=== PATIENT | female | born 1990 | race Caucasian/White ===

== ENCOUNTER → 2016-08-29 | Outpatient (CLI) | payer OTHER ==
[~2016-08-29] MED LIST: CEPHALEXIN500 M1 PO; NO HOME MEDICATIONS
[2016-08-29 12:43] LABS: ADD PATHOLOGY DIFF REVIEW NO
[2016-08-29 13:00] LABS: ADJUSTED CALCIUM 8.9 mg/dL (8.4-10.2); ALANINE AMINOTRANSFERASE 27 U/L (9-52); ALBUMIN 4.6 gm/dL (3.5-5.0); ALKALINE PHOSPHATASE 37 U/L (50-136); ANION GAP 12 mmol/L (7-16); BILIRUBIN,TOTAL 1.6 mg/dL (0.0-1.0); BLOOD UREA NITROGEN 8 mg/dL (7-17); CALCIUM 9.4 mg/dL (8.4-10.2); CARBON DIOXIDE 26 mmol/L (22-30); CHLORIDE 103 mmol/L (98-107); CREATININE, serum 0.88 mg/dL (0.52-1.25); GLUCOSE 94 mg/dL (74-106); POTASSIUM 3.7 mmol/L (3.4-5.0); SODIUM 141 mmol/L (137-145); TOTAL PROTEIN 7.6 gm/dL (6.4-8.2)
[2016-08-29 13:01] LABS: C-REACTIVE PROTEIN < 0.5 mg/dL (0.0-0.9)
[2016-08-29 13:03] LABS: HEMATOCRIT 39.1 % (37.0-47.0); HEMOGLOBIN 13.5 g/dl (12.5-16.0); MEAN CELL VOLUME 91 fl (80.0-100.0); MEAN CORPUSCULAR HEMOGLOBIN 31 pg (27.0-31.0); MEAN CORPUSCULAR HGB CONC 35 g/dl (33.0-37.0); MEAN PLATELET VOLUME 13.2 fl (7.4-10.4); PLATELET COUNT 125 K/mm3 (130-400); RED BLOOD COUNT 4.31 M/mm3 (4.10-5.30); REDCELL DISTRIBUTION WIDTH-CV 11.5 % (11.5-14.5)
[2016-08-29 13:32] LABS: BASOPHIL 1 % (0-2); EOSINOPHIL 1 % (0-4); NEUTROPHILS 71 % (42.0-75.2); TOTAL CELLS COUNTED 100
[2016-08-29 13:33] LABS: ANISOCYTOSIS 1+; HYPOCHROMIA 1+
[2016-08-29 13:40] LABS: LACTATE DEHYDROGENASE 359 U/L (313-618); URIC ACID 4.1 mg/dL (2.5-6.2)
[2016-08-29 13:42] LABS: ERYTHROCYTE SEDIMENTATION RATE 1 mm/hr (0-20)
== END ==
LOC: COL.LAB 12:16
DX: R21 Rash and other nonspecific skin eruption (principal); R63.4 Abnormal weight loss; R53.83 Other fatigue

== ENCOUNTER 2020-03-14 16:30 | Inpatient (IN) | payer BC, MEDICAID ==
[2020-03-14] VITALS (23 sets, daily range): BP systolic 108–131; BP diastolic 56–79; PULSE 76–99; TEMP 97.8–98.5
[~2020-03-14] VITALS: Ht 175.3 cm; Wt 75.9 kg
[2020-03-14 17:31] LABS: BASO % 0.2 % (0.0-2.0); EOS % 0.1 % (0-4.0); GRAN # 17.5 (1.4-6.5); GRAN % 87.7 % (42.2-75.2); HEMATOCRIT 38.1 % (37.0-47.0); HEMOGLOBIN 13.5 g/dl (12.5-16.0); LYMPH # 1.1 (1.2-3.4); LYMPH % 5.5 % (20.0-51.0); MEAN CELL VOLUME 92 fl (80.0-100.0); MEAN CORPUSCULAR HEMOGLOBIN 33 pg (27.0-31.0); MEAN CORPUSCULAR HGB CONC 35 g/dl (33.0-37.0); MEAN PLATELET VOLUME 13.3 fl (7.4-10.4); MONO % 5.2 % (1.7-9.3); PLATELET COUNT 112 K/mm3 (130-400); RED BLOOD COUNT 4.13 M/mm3 (4.10-5.30); REDCELL DISTRIBUTION WIDTH-CV 12.5 % (11.5-14.5)
--- NOTE | 2020-03-14 18:10 | NUR ---
1630 - Pt and spouse arrive ambulatory on unit. Pt changes into gown, EFM explained and placed. Pt states she has been having contractions about every 5 minutes and is leaking fluid. Pt states she had her membranes stripped today and the leaking started a couple hours after. Pt reports some spotting but no major vaginal bleeding, and good movement. Vitals taken. AmniSure swab positive. Dr. Payton notified. Admisssion labor orders received.
--- NOTE | 2020-03-14 18:13 | NUR ---
1711 - IV started in right forearm, labs drawn.
--- NOTE | 2020-03-14 18:15 | NUR ---
Pt requesting epidural, Denzel Arango CRNA notified.
[2020-03-14] MEDS ORDERED: ZOLOFT 25MG25 MG PO (18:16)
[2020-03-14] MEDS ORDERED: PRENATAL TABLET PO (18:16)
[2020-03-14] MEDS ORDERED: PREDNISONE10 MG PO (18:16)
--- NOTE | 2020-03-14 18:20 | NUR ---
1820- BEDSIDE REPORT RECEIVED, CARE ASSUMED. PT WAITING FOR EPIDURAL, DENIES FURTHER NEEDS. 1824- PT UP TO BATHROOM BEFORE EPIDURAL STARTED. 1829- BERLIN MEDART OPERATOR AT BEDSIDE FOR EPIDURAL PLACEMENT. PT POSITIONED SITTING ON EDGE OF BED. BERLIN ANSWERS QUESTIONS. PT VERBALIZES UNDERSTANDING OF PROCEDURE. 184- EPIDURAL TEST DOSE. PT TOLERATED WELL. 1845- EPIDURAL PROCEDURE COMPLETE. PT REPOSITIONED IN LEFT TILT AND MONITORS ADJUSTED. PLAN OF CARE DISCUSSED AND QUESTIONS ANSWERED. 1854- PT REPORTS SHE IS MORE COMFORTABLE. 1899- DR PACKER AT BEDSIDE. DISCUSSES PLAN OF CARE. 1904- SVE BY DR PACKER WITH MORE BLOODY SHOW. PT TOLERATED EXAM WELL. 1919- PT DENIES NEEDS. 1934- PT DENIES NEEDS.
--- NOTE | 2020-03-14 20:00 | NUR ---
1999- PT DENIES NEEDS. COVID SWAB OFFERED DUE TO SPONTANEOUS LABOR. PT DECLINES AT THIS TIME.
--- NOTE | 2020-03-14 20:40 | NUR ---
2039- NURSE TO BEDSIDE. PT REPORTS THAT SHE IS COMFORTABLE WITH EPIDURAL. FEELS SOME MILD PRESSURE IN HER ABDOMEN BUT NONE IN HER BOTTOM. 2044- SVE BY THIS NURSE , TO CATHETER PLACED AT THIS TIME. PT DENIES FURTHER NEEDS.
--- NOTE | 2020-03-14 21:25 | NUR ---
2125- PT DENIES NEEDS AT THIS TIME.
--- NOTE | 2020-03-14 22:00 | NUR ---
2199- DR PACKER CALLS AND WOULD LIKE AND UPDATED CERVICAL EXAM. NURSE TO BEDSIDE. SVE BY THIS NURSE /+1. DR PACKER UPDATED ON EXAM AND STRIP. WILL RECHECK IN 30 MINUTES AND CALL HIM BACK. PT AGREEABLE WITH THIS PLAN OF CARE.
--- NOTE | 2020-03-14 22:30 | NUR ---
2230- PT REPORTS FEELING MILD PRESSURE. SVE BY THIS NURSE 9-/+1. WILL RECHECK IN 15 MIN. PT INSTRUCTED TO CALL OUT IF INCREASED PRESSURE. 2245- SVE BY THIS NURSE /+2. DR PACKER CALLED AND UPDATED, WILL COME IN FOR DELIVERY. 2253- TO CATHETER REMOVED WITHOUT DIFFICULTY. DR PACKER AT BEDSIDE. PT POSITIONED IN STIRRUPS FOR PUSHING. 2256- PT BEGINS COACHED PUSHING WITH CONTRACTIONS. 2313- SPONTANEOUS VAGINAL DELIVERY OF VIABLE FEMALE, VIGOROUS, TO MOTHER'S ABDOMEN AND CARE OF NURSERY STAFF. 2317- SPONTANEOUS DELIVERY OF PLACENTA, EXAMINED BY DR PACKER, PITOCIN INFUSING ORDERED. REPAIR IN PROGRESS. 2325- REPAIR COMPLETE. VSS. PERICARE PROVIDED. ICEPACK TO PERINEUM. 2330- FEET DOWN FROM FOOTPLATES AND RECOVERY STARTED. PLAN OF CARE DISCUSSED WITH PT AND QUESTIONS ANSWERED.
[2020-03-15] VITALS (10 sets, daily range): BP systolic 96–122; BP diastolic 58–76; PULSE 81–96; TEMP 97.9–98.8
--- NOTE | 2020-03-15 01:30 | NUR ---
0130- IV TO SALINE LOCK, EPIDURAL CATHETER REMOVED WITH BLUE TIP INTACT. 0140- PT ASSISTED TO AMBULATE TO BATHROOM. PT ABLE TO VOID 200ML WITHOUT DIFFICULTY. PT PERFORMS PERICARE. CLEAN GOWN, PAD, AND PANTIES PROVIDED. NORMAL LOCHIA DISCUSSED. 0150- PT ASSISTED TO AMBULATE TO ROOM 207. BELONGINGS SENT WITH PT. PT ORIENTED TO ROOM AND CALL LIGHTS. PLAN OF CARE DISCUSSED AND QUESTIONS ANSWERED. PT DENIES FURTHER NEEDS AT THIS TIME.
--- NOTE | 2020-03-15 09:55 | NUR ---
Initial visit; Parents thanked Radiation Oncology Nurse for offering congratulations and God's blessings to their family for the of their daughter. Radiation Oncology Nurse thanked family for choosing our hospital.
[2020-03-15] MEDS ORDERED: MOTRIN 800800 MG/TAB PO (18:53)
== END 2020-03-15 23:59 | disposition home or self-care (01) | DRG 807 ==
LOC: LDRO 16:30 → LDR 16:45 → OB 16:45 → EDSTATUS 03-18 17:20
PROVIDERS: ADMIT Obstetrics & Gynecology
PROC: 10E0XZZ Delivery of Products of Conception, External Approach (ICD-10-PCS; principal; 2020-03-14)
PROC: 0UQMXZZ Repair Vulva, External Approach (ICD-10-PCS; 2020-03-14)
DX: O99.12 Other diseases of the blood and blood-forming organs and certain disorders involving the immune mechanism complicating childbirth (principal); Z37.0 Single live birth; D69.6 Thrombocytopenia, unspecified; O99.62 Diseases of the digestive system complicating childbirth; K21.9 Gastro-esophageal reflux disease without esophagitis; O70.0 First degree perineal laceration during delivery; O99.02 Anemia complicating childbirth; D64.9 Anemia, unspecified; Z3A.39 39 weeks gestation of pregnancy; Z79.52 Long term (current) use of systemic steroids
CPT/HCPCS: J2590; J7120; J7512